=== PATIENT | female | born 1985 | race Caucasian/White ===

== ENCOUNTER 2016-10-11 13:35 | Outpatient (CLI) | payer MEDICAID ==
[2016-10-11] MEDS ORDERED: RINGERS SOLUTION,LACTATED 1,000 ML IV PRN (13:44)
[2016-10-11 14:25] LABS: ABSOLUTE EOSINOPHILS # (AUTO) 0.1 10^3/uL (0.0-0.6); ABSOLUTE LYMPHOCYTES (AUTO) 1.3 10^3/uL (0.5-4.7); ABSOLUTE MONOCYTES (AUTO) 0.8 10^3/uL (0.1-1.4); ABSOLUTE NEUT (AUTO) 9.3 10^3/uL (1.7-8.2); BASOPHILS % (AUTO) 0.2 % (0-2); EOSINOPHILS % (AUTO) 0.6 % (0-6); HEMATOCRIT 31.3 % (36.0-47.0); HEMOGLOBIN 11.1 g/dL (12.0-15.5); LYMPHOCYTES % (AUTO) 11.6 % (13-45); MEAN CORPUSCULAR HEMOGLOBIN 32.8 pg (27.0-33.4); MEAN CORPUSCULAR HGB CONC 35.3 g/dL (32.0-36.0); MEAN CORPUSCULAR VOLUME 93 fl (80-97); MONOCYTES % (AUTO) 7.1 % (3-13); RED BLOOD COUNT 3.37 10^6/uL (3.72-5.28); RED CELL DISTRIBUTION WIDTH 13.2 % (11.5-14.0); SEGMENTED NEUTROPHILS % (AUTO) 80.5 % (42-78); WHITE BLOOD COUNT 11.5 10^3/uL (4.0-10.5)
[2016-10-11 14:34] LABS: APPEARANCE,URINE SLIGHTLY-CLOUDY; BILIRUBIN,URINE NEGATIVE (NEGATIVE); GLUCOSE, URINE NEGATIVE (NEGATIVE); KETONES,URINE NEGATIVE (NEGATIVE); LEUKOCYTE ESTERASE,URINE SMALL (NEGATIVE); NITRITE,URINE NEGATIVE (NEGATIVE); PROTEIN,URINE NEGATIVE (NEGATIVE); URINE SPECIFIC GRAVITY 1.003; UROBILINOGEN,URINE NEGATIVE mg/dL (<2.0)
[2016-10-11] MEDS ORDERED: METOCLOPRAMIDE HCL INJ/PF 10 MG/2 ML SDV IV ONE (14:39)
[2016-10-11] MEDS ORDERED: ONDANSETRON HCL INJ/PF 4 MG/2 ML SDV IV ONE (14:39)
[2016-10-11 14:40] LABS: URINE BARBITURATES SCREEN NEGATIVE; URINE METHADONE SCREEN NEGATIVE; URINE OPIATES LOW NEGATIVE; URINE PHENCYCLIDINE SCREEN NEGATIVE
[2016-10-11] MEDS ORDERED: METOCLOPRAMIDE HCL INJ/PF 10 MG/2 ML SDV ONE (14:44)
[2016-10-11] MEDS ORDERED: ONDANSETRON HCL INJ/PF 4 MG/2 ML SDV ONE (14:44)
[2016-10-11 14:48] LABS: ALANINE AMINOTRANSFERASE 22 U/L (9-52); ALBUMIN 3.6 g/dL (3.5-5.0); ALKALINE PHOSPHATASE 102 U/L (38-126); ANION GAP 12 (5-19); ASPARTATE AMINO TRANSFERASE 15 U/L (14-36); BILIRUBIN,DIRECT 0.3 mg/dL (0.0-0.4); BILIRUBIN,TOTAL 0.6 mg/dL (0.2-1.3); BLOOD UREA NITROGEN 8 mg/dL (7-20); CALCIUM 8.9 mg/dL (8.4-10.2); CARBON DIOXIDE 22 mmol/L (22-30); CHLORIDE 106 mmol/L (98-107); CREATININE RESULT 0.54 mg/dL (0.52-1.25); GLUCOSE 87 mg/dL (75-110); POTASSIUM 4.2 mmol/L (3.6-5.0); SODIUM 140.2 mmol/L (137-145); TOTAL PROTEIN 6.5 g/dL (6.3-8.2)
== END 2016-10-11 15:37 | disposition home or self-care (01) ==
LOC: LC 13:35
PROVIDERS: ATTEND Student in an Organized Health Care Education/Training Program
PROC: 4A1HXCZ Monitoring of Products of Conception, Cardiac Rate, External Approach (ICD-10-PCS; principal; 2016-10-11)
DX: O99.513 Diseases of the respiratory system complicating pregnancy, third trimester (principal); J32.9 Chronic sinusitis, unspecified; Z3A.38 38 weeks gestation of pregnancy
CPT/HCPCS: 59025; 36415; 85025; 80053; 81001; 80307; J2765; J2405

== ENCOUNTER 2016-10-31 20:27 | Inpatient (IN) | payer MEDICAID ==
[2016-10-31 21:09] LABS: ABSOLUTE EOSINOPHILS # (AUTO) 0.1 10^3/uL (0.0-0.6); ABSOLUTE LYMPHOCYTES (AUTO) 2.4 10^3/uL (0.5-4.7); ABSOLUTE MONOCYTES (AUTO) 0.9 10^3/uL (0.1-1.4); ABSOLUTE NEUT (AUTO) 9.6 10^3/uL (1.7-8.2); BASOPHILS % (AUTO) 0.2 % (0-2); HEMATOCRIT 36.3 % (36.0-47.0); HEMOGLOBIN 12.5 g/dL (12.0-15.5); HGB HCT DIFFERENCE 1.2; LYMPHOCYTES % (AUTO) 18.6 % (13-45); MEAN CORPUSCULAR HEMOGLOBIN 32.3 pg (27.0-33.4); MEAN CORPUSCULAR HGB CONC 34.6 g/dL (32.0-36.0); MEAN CORPUSCULAR VOLUME 94 fl (80-97); MONOCYTES % (AUTO) 6.9 % (3-13); RED BLOOD COUNT 3.88 10^6/uL (3.72-5.28); RED CELL DISTRIBUTION WIDTH 13.6 % (11.5-14.0); SEGMENTED NEUTROPHILS % (AUTO) 73.3 % (42-78)
[2016-10-31 21:10] LABS: APPEARANCE,URINE CLEAR; BILIRUBIN,URINE NEGATIVE (NEGATIVE); GLUCOSE, URINE NEGATIVE (NEGATIVE); KETONES,URINE NEGATIVE (NEGATIVE); LEUKOCYTE ESTERASE,URINE NEGATIVE (NEGATIVE); NITRITE,URINE NEGATIVE (NEGATIVE); PROTEIN,URINE NEGATIVE (NEGATIVE); URINE SPECIFIC GRAVITY 1.002; UROBILINOGEN,URINE NEGATIVE mg/dL (<2.0)
[2016-10-31] MEDS ORDERED: DINOPROSTONE 10 MG VAGINAL INSERT.SR ONE (21:19)
[2016-10-31 21:24] LABS: URINE BARBITURATES SCREEN NEGATIVE; URINE METHADONE SCREEN NEGATIVE; URINE OPIATES LOW NEGATIVE; URINE PHENCYCLIDINE SCREEN NEGATIVE
[2016-10-31] MEDS ORDERED: RINGERS SOLUTION,LACTATED 300 ML IV ONE (22:15)
[2016-10-31] MEDS ORDERED: OXYTOCIN/NORMAL SALINE 1,000 ML IV PRN (22:15)
[2016-10-31] MEDS ORDERED: ACETAMINOPHEN 325 MG TABLET PO PRN (22:17)
[2016-10-31] MEDS ORDERED: ZOLPIDEM TARTRATE 5 MG TABLET PO PRN (22:17)
[2016-11-01] MEDS ORDERED: OXYTOCIN/NORMAL SALINE 1,000 ML IV PRN ×2 (03:51→14:17)
[2016-11-01] MEDS ORDERED: ZOLPIDEM TARTRATE 5 MG TABLET PO PRN ×2 (03:51→14:17)
[2016-11-01] MEDS: DINOPROSTONE 10 MG VAGINAL INSERT.SR PV PRN ×2 (05:24→05:25)
[2016-11-01] MEDS ORDERED: OXYTOCIN/NORMAL SALINE 20 UNIT/1,000 ML RTUINJ ONE ×2 (05:30→15:23)
[2016-11-01] MEDS: RINGERS SOLUTION,LACTATED 1,000 ML IV PRN ×2 (05:35→19:39)
[2016-11-01] MEDS ORDERED: ACETAMINOPHEN 325 MG TABLET PO SCH (06:00)
[2016-11-01] MEDS ORDERED: PHENYLEPHRINE HCL INJ/PF 10 MG/1 ML SDV ONE (08:13)
[2016-11-01] MEDS ORDERED: EPHEDRINE SULFATE INJ 50 MG/1 ML AMPULE ONE (08:13)
[2016-11-01] MEDS ORDERED: FENTANYL CITRATE INJ/PF 100 MCG/2 ML AMPUL ONE ×3 (08:13→16:44)
[2016-11-01] MEDS ORDERED: FENTANYL/BUPIVACAINE/NS/PF 200 MCG/100 ML RTUINJ EPI ONE (08:14)
[2016-11-01] MEDS ORDERED: BUPIVACAINE HCL 0.25 % INJ/PF (2.5 MG/1 ML) 30 ML VIAL ONE (08:14)
[2016-11-01] MEDS ORDERED: LIDOCAINE 1% INJ-PF (10 MG/ML) 30 ML SDV ONE (13:44)
[2016-11-01] MEDS ORDERED: MISOPROSTOL 0.2 MG TABLET ONE (13:44)
[2016-11-01] MEDS ORDERED: PROMETHAZINE HCL 25 MG TABLET PO PRN (14:17)
[2016-11-01] MEDS ORDERED: MEASLES,MUMPS&RUBELLA VACC/PF 0.5 ML VIAL SUBCUT PRN (14:17)
[2016-11-01] MEDS ORDERED: GLYCERIN/WITCH HAZEL LEAF 1 EACH MED..PAD TP PRN (14:17)
[2016-11-01] MEDS ORDERED: BENZOCAINE/MENTHOL AEROSOL SPRAY 56 ML TOP PRN (14:17)
[2016-11-01] MEDS ORDERED: ACETAMINOPHEN 650 MG SUPP.RECT PR PRN (14:17)
[2016-11-01] MEDS ORDERED: DIPH/PERTUSS(ACELL)/TETANUS VAC/PF 0.5 ML SYR (>=10YO) IM PRN (14:17)
[2016-11-01] MEDS ORDERED: PSEUDOEPHEDRINE HCL 30 MG TABLET PO PRN (14:17)
[2016-11-01] MEDS ORDERED: DIBUCAINE 1% OINTMENT 28 GM TP PRN (14:17)
[2016-11-01] MEDS ORDERED: ACETAMINOPHEN WITH CODEINE #3 TABLET PO PRN ×2 (14:17)
[2016-11-01] MEDS ORDERED: MAGNESIUM HYDROXIDE SUSP 30 ML UDCUP PO PRN (14:17)
[2016-11-01] MEDS ORDERED: DIPHENHYDRAMINE HCL 25 MG CAPSULE PO PRN (14:17)
[2016-11-01] MEDS ORDERED: NA PHOS,M-B/NA PHOS,DI-BA (ADULT) 133 ML ENEMA PR PRN (14:17)
[2016-11-01] MEDS ORDERED: PROMETHAZINE HCL 25 MG SUPP.RECT PR PRN (14:17)
[2016-11-01] MEDS ORDERED: PROMETHAZINE HCL INJ 25 MG/1 ML VIAL IV PRN (14:17)
[2016-11-01] MEDS ORDERED: ONDANSETRON HCL INJ/PF 4 MG/2 ML SDV ONE ×3 (14:36→19:07)
[2016-11-01] MEDS ORDERED: NORMAL SALINE 250 ML IV PRN ×3 (15:50→17:21)
[2016-11-01] MEDS ORDERED: METHYLERGONOVINE MALEATE INJ/PF 0.2 MG/1 ML AMPULE IV ONE (15:53)
[2016-11-01] MEDS ORDERED: CARBOPROST TROMETHAMINE INJ 250 MCG/1 ML AMPULE ONE (15:54)
[2016-11-01] MEDS ORDERED: CARBOPROST TROMETHAMINE INJ 250 MCG/1 ML AMPULE IM ONE (15:54)
[2016-11-01] MEDS ORDERED: METHYLERGONOVINE MALEATE INJ/PF 0.2 MG/1 ML AMPULE ONE ×2 (15:55→15:57)
[2016-11-01 16:14] LABS: ABSOLUTE EOSINOPHILS # (AUTO) 0.1 10^3/uL (0.0-0.6); ABSOLUTE LYMPHOCYTES (AUTO) 1.7 10^3/uL (0.5-4.7); ABSOLUTE MONOCYTES (AUTO) 0.9 10^3/uL (0.1-1.4); ABSOLUTE NEUT (AUTO) 13.8 10^3/uL (1.7-8.2); BASOPHILS % (AUTO) 0.2 % (0-2); EOSINOPHILS % (AUTO) 0.4 % (0-6); HEMATOCRIT 28.1 % (36.0-47.0); LYMPHOCYTES % (AUTO) 10.3 % (13-45); MEAN CORPUSCULAR HEMOGLOBIN 32.7 pg (27.0-33.4); MEAN CORPUSCULAR HGB CONC 34.4 g/dL (32.0-36.0); MEAN CORPUSCULAR VOLUME 95 fl (80-97); MONOCYTES % (AUTO) 5.7 % (3-13); RED BLOOD COUNT 2.96 10^6/uL (3.72-5.28); RED CELL DISTRIBUTION WIDTH 13.6 % (11.5-14.0); SEGMENTED NEUTROPHILS % (AUTO) 83.4 % (42-78); WHITE BLOOD COUNT 16.5 10^3/uL (4.0-10.5)
[2016-11-01 16:25] LABS: HEMOGLOBIN 9.7 g/dL (12.0-15.5)
[2016-11-01 16:28] LABS: PARTIAL THROMBOPLASTIN TIME 25.2 SEC (23.5-35.8)
[2016-11-01] MEDS ORDERED: LOPERAMIDE HCL 2 MG CAPSULE ONE (16:29)
--- NOTE | 2016-11-01 16:46 | Admission Physical ---
Datetime Report Generated by CPN: 11/01/2016 16:46 CURRENT ADMISSION Hx Assessment: The History has been Reviewed and is Current Chief Complaint: Scheduled Induction of Labor Indication for Induction: Post Dates Admit Plan: Admit to Unit; Initiate Labor Induction Protocol ALLERGIES Medication Allergies: No Medication Allergies: No Known Allergies (04/28/2015) Latex: No Latex Allergies Food Allergies: NONE Environmental Allergies: NONE OBSTETRICAL HISTORY EDC: 10/24/2016 00:00 : 5 Para: 3 Term: 3 : 0 SAB: 1 IAB: 0 Ectopic: 0 Livin Cesareans: 0 VBACs: 0 Multiple Births: 0 Gestational Diabetes: No Rh Sensitization: No Incompetent Cervix: No MADDISON: No Infertility: No ART Treatment: No Uterine Anomaly: No IUGR: No Hx Previous C/S: No Macrosomia: No Hx Loss/Stillborn: No PIH: No Hx : No Placenta Previa/Abruption: No Depression/PP Depression: Yes PTL/PROM: No Post Hemorrhage: No Current Procedures: Ultrasound Obstetrical History Comments: G1: 2004 41 wk G2: 2007 6 wk SAB G3: 2008 40 wk G4: 2014 41 wk G5: current SEE RECORDS Alcohol: No Marijuana : No Cocaine: No Other Illicit Drugs: No Cigarettes: Former Smoker. 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, on meds x6 weeks INFECTIOUS HISTORY Gonorrhea: No Genital Herpes: No Chlamydia: No Tuberculosis: No Syphilis: No Hepatitis: No HIV/AIDS Exposure: No Rash or Viral Illness: No HPV: No PHYSICAL EXAM General: Normal HEENT: Normal Neurologic: Normal Thyroid: Normal Heart: Normal Lungs: Normal Breast: Deferred Back: Normal Abdomen: Normal Genitourinary Exam: Normal Extremities: Normal DTRs: Normal Pelvic Type: Adequate Vital Signs: Reviewed VAGINAL EXAM Dilatation: 2 Effacement: 50 Station: -2 MEMBRANES Pooling: Negative Membranes: Intact FETUS A EGA: 41.1 Monitoring: External US FHR- Baseline: 120 Variability: Moderate 6-25bpm Decelerations: None Presentation: Vertex PLANS FOR LABOR AND DELIVERY Labor and Delivery: None Pain Management: Epidural Feeding Preference: Breast Benefit of Breast Feed Discussed: Yes Circumcision: Yes INFORMED CONSENT Signature: with User ID: [email or web address] : I personally evaluated and examined the patient in conjunction with the MLP and agree with the assessment, treatment plan and disposition.
--- NOTE | 2016-11-01 16:47 | Delivery Summary ---
Del Sum A-C Datetime Report Generated by CPN: 11/01/2016 16:47 DELIVERY PERSONNEL DELIVERY PERSONNEL: [phone] Delivery Doctor:: Caroline Brown CNM Nurse Ship Scaler Certified:: Caroline Brown CNM Labor and Delivery Nurse:: Preeti Zelaya RN Nursery Nurse:: Josefina Hernandez RN Nursery Nurse:: Opal Hensley RN Barometers Calibrator/BALDEV: Abhilash Jones, MARKETING OPERATIONS SPECIALIST MATERNAL INFORMATION Delivery Anesthesia: Epidural Medications After Delivery: Pitocin Bolus-Please Comment; Pitocin Drip 20 Units/1000ml NSS Estimated Blood Loss (ml): 300 Maternal Complications: None Provider Comments: live male in vertex OA to MATEO at 1353 under epidural anesthesia. Increased bleeding with delivery. Nuchal cord x1-reduced prior to delivery of shoulders and body. Dr Maldonado called to room prior to delivery as FHR at 70 beats per minute. Delivery of shoulders and body without difficulty. Cord clamped and cut and baby passed to nursery staff at warmer. Spontaneous respiration and cry with stimulation of drying infant. Apgars 8-8. Placenta, membranes, and cord expelled at 1356, Ingram presentation. Perineum intact. Patient tolerated procedure well. Hemostasis achieved w fundal massage. LABOR SUMMARY EDC: 10/24/2016 00:00 No. Babies in Womb: 1 Attempted: No Labor Anesthesia: Epidural LABOR INFORMATION Reason for Induction: Post Dates Onset of Labor: 11/01/2016 10:31 Oxytocin: Induction Group B Beta Strep: negative Steroids Given: None Reason Steroids Not Administered: Not Applicable MEMBRANES Membranes Rupture Method: Artificial Rupture of Membranes: 11/01/2016 10:31 Length of Rupture (hr): 3.37 Amniotic Fluid Color: Clear Amniotic Fluid Amount: None Amniotic Fluid Odor: Normal STAGES OF LABOR Stage 3 hr: 0 Stage 3 min: 3 Total Time in Labor hr: 3 Total Time in Labor min: 25 VAGINAL DELIVERY Episiotomy: None Laceration Extension: N/A Laceration Type: None Laceration Repair: Not Applicable Sponge Count Correct: N/A Sharps Count Correct: Yes BABY A INFORMATION Infant Delivery Date/Time: 11/01/2016 13:53 Method of Delivery: Vaginal Born in Route : No : N/A Forceps: N/A Vacuum Extraction: N/A Shoulder Dystocia : No PRESENTATION/POSITION BABY A Presentation: Cephalic Cephalic Presentation: Vertex Vertex Position: Left Occipital Anterior Breech Presentation: N/A PLACENTA INFORMATION BABY A Placenta Delivery Time : 11/01/2016 13:56 Placenta Method of Delivery: Spontaneous Placenta Status: Delivered SCORES BABY A Heart Rate 1 min: >100 bpm Resp Effort 1 min: Good Cry Reflex Irritability 1 min: Cough or Sneeze or Pulls Away Muscle Tone 1 min: Active Motion Color 1 min: Blue/Pale Resuscitation Effort 1 min: Tactile Stimulation SCORE 1 MIN: 8 Heart Rate 5 min: >100 bpm Resp Effort 5 min: Good Cry Reflex Irritability 5 min: Cough or Sneeze or Pulls Away Muscle Tone 5 min: Active Motion Color 5 min: Blue/Pale Resuscitation Effort 5 min: N/A SCORE 5 MIN: 8 Resuscitation Effort 10 min: N/A INFANT INFORMATION BABY A Gestational Age at Delivery: 41.1 Gestational Status: Late Term- 41- 41.6 Weeks Outcome : Liveborn Condition : Stable Infant Sex: Male IDENTIFICATION BABY A Infant Verification Date/Time: 11/01/2016 14:08 ID Band Number: [id number] Mother's Name Verified: Yes RN Verifying Infant: D Samire RNC/BL Roulund RN WEIGHT/LENGTH BABY A Infant Birthweight (gm): 3715 Infant Weight (lb): 8 Weight (oz): 3 Infant Length (in): 20.25 Length (cm): 51.44 CORD INFORMATION BABY A No. Cord Vessels: 3 Nuchal Cord : Around Neck x1, Loose Cord Blood Taken: Yes-For Storage (Mom's Blood type +) Suction: None; Mouth ASSESSMENT BABY A Infant Complications: None Physical Findings at Delivery: Within Normal Limits Respirations: Appears Normal Skin to Skin: Yes Sales Support Representative/ALS Called : No Infant Care By: Mario Hernandez RN, Faheem Hensley RN Transferred To: Remains with Mother BABY B INFORMATION : N/A SIGNATURES Assignment: Artur Maldonado DO Signature: with User ID: [email or web address] : with User ID: [email or web address] : I personally evaluated and examined the patient in conjunction with the MLP and agree with the assessment, treatment plan and disposition.
[2016-11-01 17:04] LABS: HEMATOCRIT 23.5 % (36.0-47.0); HGB HCT DIFFERENCE 0.5; MEAN CORPUSCULAR HEMOGLOBIN 32.4 pg (27.0-33.4); MEAN CORPUSCULAR HGB CONC 33.8 g/dL (32.0-36.0); MEAN CORPUSCULAR VOLUME 96 fl (80-97); RED BLOOD COUNT 2.46 10^6/uL (3.72-5.28); RED CELL DISTRIBUTION WIDTH 13.3 % (11.5-14.0); WHITE BLOOD COUNT 13.1 10^3/uL (4.0-10.5)
[2016-11-01] MEDS ORDERED: FENTANYL CITRATE INJ/PF 250 MCG/5 ML AMPULE ONE (17:19)
[2016-11-01] MEDS ORDERED: HYDROMORPHONE HCL INJ/PF 2 MG/ML AMPULE ONE (17:19)
[2016-11-01] MEDS ORDERED: MIDAZOLAM 2 MG/2 ML INJ ONE (17:19)
[2016-11-01] MEDS ORDERED: PROPOFOL INJ 200 MG/20 ML VIAL IV ONE (17:19)
[2016-11-01] MEDS ORDERED: CEFAZOLIN INJ 1 GM VIAL ONE (17:31)
[2016-11-01] MEDS ORDERED: FERROUS SULFATE 325 MG TABLET PO SCH (18:00)
[2016-11-01] MEDS ORDERED: DOCUSATE SODIUM 100 MG CAPSULE PO SCH (18:00)
[2016-11-01] MEDS ORDERED: CALCIUM GLUCONATE 1000 MG/10 ML INJ IV ONE (18:15)
[2016-11-01] MEDS ORDERED: METHYLENE BLUE/PF INJ 100 MG/10 ML SDV ONE (18:19)
[2016-11-01] MEDS ORDERED: MORPHINE SULFATE 10 MG/ML INJ ONE (18:55)
--- NOTE | 2016-11-01 19:04 | Admission Physical ---
Datetime Report Generated by CPN: 11/01/2016 19:03 CURRENT ADMISSION Hx Assessment: The History has been Reviewed and is Current Chief Complaint: Scheduled Induction of Labor Indication for Induction: Post Dates Admit Plan: Admit to Unit; Initiate Labor Induction Protocol ALLERGIES Medication Allergies: No Medication Allergies: No Known Allergies (04/28/2015) Latex: No Latex Allergies Food Allergies: NONE Environmental Allergies: NONE OBSTETRICAL HISTORY EDC: 10/24/2016 00:00 : 5 Para: 3 Term: 3 : 0 SAB: 1 IAB: 0 Ectopic: 0 Livin Cesareans: 0 VBACs: 0 Multiple Births: 0 Gestational Diabetes: No Rh Sensitization: No Incompetent Cervix: No MADDISON: No Infertility: No ART Treatment: No Uterine Anomaly: No IUGR: No Hx Previous C/S: No Macrosomia: No Hx Loss/Stillborn: No PIH: No Hx : No Placenta Previa/Abruption: No Depression/PP Depression: Yes PTL/PROM: No Post Hemorrhage: No Current Procedures: Ultrasound Obstetrical History Comments: G1: 2004 41 wk G2: 2007 6 wk SAB G3: 2008 40 wk G4: 2014 41 wk G5: current SEE RECORDS Alcohol: No Marijuana : No Cocaine: No Other Illicit Drugs: No Cigarettes: Former Smoker. 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 Heart Disease: No Hosp/Surgery: Yes Autoimmune Disorder: No Anesthetic Complications: No Kidney Disease: No Abnormal Pap Smear: No Neuro/Epilepsy: No Psychiatric Disorders: No Other Medical Diseases: No Hepatitis/Liver Disease: No Significant Family History: No Varicosities/Phlebitis: No Trauma/Violence : No Thyroid Dysfunction: No Medical History Comments: 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, on meds x6 weeks INFECTIOUS HISTORY Gonorrhea: No Genital Herpes: No Chlamydia: No Tuberculosis: No Syphilis: No Hepatitis: No HIV/AIDS Exposure: No Rash or Viral Illness: No HPV: No PHYSICAL EXAM General: Normal HEENT: Normal Neurologic: Normal Thyroid: Normal Heart: Normal Lungs: Normal Breast: Deferred Back: Normal Abdomen: Normal Genitourinary Exam: Normal Extremities: Normal DTRs: Normal Pelvic Type: Adequate Vital Signs: Reviewed VAGINAL EXAM Dilatation: 2 Effacement: 50 Station: -2 MEMBRANES Pooling: Negative Membranes: Intact FETUS A EGA: 41.1 Monitoring: External US FHR- Baseline: 120 Variability: Moderate 6-25bpm Decelerations: None Presentation: Vertex PLANS FOR LABOR AND DELIVERY Labor and Delivery: None Pain Management: Epidural Feeding Preference: Breast Benefit of Breast Feed Discussed: Yes Circumcision: Yes INFORMED CONSENT Signature: with User ID: [email or web address] : I personally evaluated and examined the patient in conjunction with the MLP and agree with the assessment, treatment plan and disposition.
[2016-11-01] MEDS ORDERED: LIDOCAINE 2% INJ-PF (20 MG/ML) 10 ML AMPUL ONE (19:07)
[2016-11-01] MEDS ORDERED: GLYCOPYRROLATE INJ 0.4 MG/2 ML VIAL ONE (19:07)
[2016-11-01] MEDS ORDERED: SUCCINYLCHOLINE CHLORIDE INJ 200 MG/10 ML VIAL ONE (19:07)
[2016-11-01] MEDS ORDERED: METOCLOPRAMIDE HCL INJ/PF 10 MG/2 ML SDV ONE (19:07)
[2016-11-01] MEDS ORDERED: ROCURONIUM BROMIDE INJ 50 MG/5 ML VIAL IV ONE (19:07)
[2016-11-01 19:18] LABS: PROTHROMBIN TIME 15.4 SEC (11.4-15.4)
[2016-11-01 19:19] LABS: PARTIAL THROMBOPLASTIN TIME 30.3 SEC (23.5-35.8)
[2016-11-01 19:25] LABS: ANION GAP 8 (5-19); BLOOD UREA NITROGEN 7 mg/dL (7-20); CALCIUM 7.6 mg/dL (8.4-10.2); CARBON DIOXIDE 19 mmol/L (22-30); CHLORIDE 108 mmol/L (98-107); CREATININE RESULT 0.45 mg/dL (0.52-1.25); GLUCOSE 131 mg/dL (75-110); POTASSIUM 5.3 mmol/L (3.6-5.0)
[2016-11-01] MEDS ORDERED: PROPOFOL 100 ML IV ONE (19:37)
[2016-11-01] MEDS ORDERED: ONDANSETRON HCL INJ/PF 4 MG/2 ML SDV IV PRN (19:39)
[2016-11-01] MEDS ORDERED: MORPHINE SULFATE 10 MG/ML INJ IV PRN (19:39)
[2016-11-01 20:03] LABS: MAGNESIUM 1.2 mg/dL (1.6-2.3)
[2016-11-01] MEDS ORDERED: PROPOFOL 100 ML IV PRN (20:03)
[2016-11-01] MEDS: MAGNESIUM SULFATE 1 GM/D5W 100 ML IV SCH ×2 (20:51→22:03)
[2016-11-01 20:59] LABS: PROTHROMBIN TIME 14.3 SEC (11.4-15.4)
[2016-11-01 21:00] LABS: FIBRINOGEN 234 mg/dL (209-497); PARTIAL THROMBOPLASTIN TIME 26.9 SEC (23.5-35.8)
[2016-11-01 21:34] LABS: ABSOLUTE LYMPHOCYTES (AUTO) 0.8 10^3/uL (0.5-4.7); ABSOLUTE MONOCYTES (AUTO) 1.1 10^3/uL (0.1-1.4); ABSOLUTE NEUT (AUTO) 13.3 10^3/uL (1.7-8.2); BASOPHILS % (AUTO) 0.1 % (0-2); HEMOGLOBIN 11.1 g/dL (12.0-15.5); HGB HCT DIFFERENCE 1.3; LYMPHOCYTES % (AUTO) 5.5 % (13-45); MEAN CORPUSCULAR HEMOGLOBIN 31.1 pg (27.0-33.4); MEAN CORPUSCULAR HGB CONC 34.8 g/dL (32.0-36.0); MEAN CORPUSCULAR VOLUME 89 fl (80-97); MONOCYTES % (AUTO) 7.5 % (3-13); RED BLOOD COUNT 3.58 10^6/uL (3.72-5.28); RED CELL DISTRIBUTION WIDTH 14.6 % (11.5-14.0); SEGMENTED NEUTROPHILS % (AUTO) 86.9 % (42-78); WHITE BLOOD COUNT 15.3 10^3/uL (4.0-10.5)
[2016-11-01 21:51] LABS: ALANINE AMINOTRANSFERASE 31 U/L (9-52); ALBUMIN 2.4 g/dL (3.5-5.0); ALKALINE PHOSPHATASE 48 U/L (38-126); ANION GAP 7 (5-19); ASPARTATE AMINO TRANSFERASE 24 U/L (14-36); BILIRUBIN,DIRECT 0.6 mg/dL (0.0-0.4); BILIRUBIN,TOTAL 1.4 mg/dL (0.2-1.3); BLOOD UREA NITROGEN 7 mg/dL (7-20); CALCIUM 7.8 mg/dL (8.4-10.2); CARBON DIOXIDE 22 mmol/L (22-30); CHLORIDE 107 mmol/L (98-107); CREATININE RESULT 0.45 mg/dL (0.52-1.25); GLUCOSE 120 mg/dL (75-110); SODIUM 135.8 mmol/L (137-145); TOTAL PROTEIN 4.7 g/dL (6.3-8.2)
[2016-11-01 21:57] LABS: POTASSIUM 4.3 mmol/L (3.6-5.0)
[2016-11-01 21:59] LABS: D-DIMER > 20.00 ug/mL (0.00-0.50)
[2016-11-01] MEDS ORDERED: FAMOTIDINE 20 MG TABLET PO SCH (22:00)
[2016-11-01] MEDS ORDERED: IBUPROFEN 800 MG TABLET PO SCH (22:00)
[2016-11-01 22:03] LABS: ARTERIAL BLOOD BASE EXCESS -3.7 mmol/L; ARTERIAL BLOOD O2 SATURATION 99.5 % (94-98)
[2016-11-02] MEDS ORDERED: CEFAZOLIN 2 GM/D5W RTU 2 GM/50 ML RTUPB IV SCH
--- NOTE | 2016-11-02 00:18 | OPERATIVE REPORT E ---
Operative Report NAME: JATIN YEBOAH : 1985 AGE: 31Y DATE OF SURGERY: 11/01/16 ROOM: 605 PREOPERATIVE DIAGNOSIS: hemorrhage. POSTOPERATIVE DIAGNOSIS: hemorrhage secondary to uterine rupture. PROCEDURES PERFORMED: 1. Exploratory laparotomy. 2. Supracervical hysterectomy. 3. Cystoscopy. SURGEON: Artur Maldonado D.O. TREE DOCTOR: Su Schmidt M.D. ANESTHESIA: General endotracheal anesthesia. ESTIMATED BLOOD LOSS: 2500 mL. COMPLICATIONS: None. PATHOLOGY: Uterus. FINDINGS: 1. Large uterine rupture of the right posterior aspect of the uterus extending down into the broad ligament, down through the cervix into the vagina. 2. Normal appearing bilateral ovaries. 3. Large right broad ligament hematoma. DESCRIPTION OF PROCEDURE: Patient was taken to the operating room for an emergency hysterectomy secondary to her hemorrhage which was not treated successfully with Methergine, Cytotec, Hemabate, Pitocin, and Bakri balloon. Patient was taken to the operating room where her general endotracheal anesthesia was administered. She was placed in the dorsal supine position upon the operating table. She was then prepped and draped in normal sterile fashion. A scalpel was then used to make a Pfannenstiel skin incision. The skin incision was carried down through the subcutaneous tissue to the layer of the fascia. The fascia was incised in the midline. The fascial incision was extended bilaterally using Bovie cautery. The superior fascial edge was grasped with Reta clamps, elevated, and the rectus muscle was dissected off sharply and bluntly. Attention was then turned to the inferior fascial edge which was grasped with Reta clamps, elevated, and rectus muscle dissected off sharply and bluntly. The rectus muscles were then in the midline. Peritoneum identified, entered bluntly with the surgeon's hands. There was noted to be upon entry a large amount of hemoperitoneum. This was suctioned out. The uterus was then exteriorized and it was noted to have a large uterine rupture from the right posterior aspect of the uterus extending all the way down through the cervix into the vagina, with a large right broad ligament hematoma. Using the LigaSure device, the bilateral round ligaments were transected with good hemostasis. The bilateral utero-ovarian arteries were then transected using the LigaSure device with excellent hemostasis. The bladder flap was then created without difficulty. The uterine arteries were then skeletonized and then transected with good hemostasis with the LigaSure device. Sequential pedicle bites were taken on both sides, down to the level of the cervix, with tying pedicles with 0-Vicryl. At this time, the rupture extension through the cervix into the vagina was repaired using 0-Vicryl in a running locking fashion. Following this, the uterus was amputated at the level of the cervix. The cervix was then suture closed using 0-Vicryl in a [id number] sutures. Following this, the pelvis and abdomen were copiously irrigated. FloSeal was then used over the vagina cuff and the right and left pelvic sidewalls to ensure good hemostasis which was achieved. At this time, Dr. Schmidt broke scrub and performed a cystoscopy on the patient using a 7-degree scope. Patient was previously injected with Methylene Blue. Cystoscopy revealed no foreign bodies within the bladder and good bilateral urethral jet flow. Following this, Dr. Schmidt then changed gloves and came back up to the abdomen where all the pedicle sites and vaginal cuff were inspected and have good hemostasis. Following this, the rectus muscles were then reapproximated using 1-0 Vicryl in a running nonlocking fashion. The fascia was then closed using 1-0 Vicryl in a running nonlocking fashion. The subcutaneous space was made hematostatic using a Bovie cautery. The skin was then closed with absorbable cecilio, covered with an OpSite, and then with a pressor dressing. At this point in time, the procedure was terminated. An x-ray was taken which revealed no retained foreign bodies secondary to an emergency status and no original count was performed. Patient was taken to the ICU for postoperative care in stable condition. DICTATING PHYSICIAN: Artur Maldonado DO [id number] PHY#: [id number] ID: [id number] JOB#: [id number] ACCT: [id number] cc:Artur Maldonado D.O. >
[2016-11-02 02:06] VITALS: BP 120/61
[2016-11-02] MEDS ORDERED: PRENATAL VITAMIN W-O CA NO5/FE FUMARATE/FA CAPSULE PO SCH (10:00)
[2016-11-02] MEDS ORDERED: SENNOSIDES/DOCUSATE 8.6-50 MG 1 EACH TABLET PO SCH (10:00)
[2016-11-07 15:12] LABS: HEMATOCRIT 37.4 % (36.0-47.0); HGB HCT DIFFERENCE -0.5; MEAN CORPUSCULAR HEMOGLOBIN 30.3 pg (27.0-33.4); RED BLOOD COUNT 4.06 10^6/uL (3.72-5.28); RED CELL DISTRIBUTION WIDTH 14.3 % (11.5-14.0); WHITE BLOOD COUNT 15.5 10^3/uL (4.0-10.5)
[2016-11-07 15:14] LABS: HEMOGLOBIN 12.3 g/dL (12.0-15.5); MEAN CORPUSCULAR VOLUME 92 fl (80-97)
--- NOTE | 2016-12-14 17:43 | TRANSFER SUMMARY E ---
Transfer Summary NAME: JATIN YEBOAH : 1985 AGE: 31Y ADMITTED: 10/31/2016 TRANSFERRED: 12/14/2016 HOSPITAL COURSE: The patient is admitted on 11/02/2016 for scheduled induction secondary to post dates. See labor note for full details. The patient undergoes a normal labor curve and normal spontaneous vaginal delivery. She has hemorrhage that initially was treated with tocolytics, which does not resolve the hemorrhage and also followed by with a Bakri balloon, which did not resolve the hemorrhage. The patient was taken to the operating room for an exploratory laparotomy and is found to have a very large posterior uterine rupture. The patient undergoes an emergent supracervical hysterectomy; see operative note for full details. She was transferred to the intensive care unit approximately an hour to 90 minutes following the surgery. The patient begins to exhibit signs of DIC. The decision is made secondary to lack of blood products here at [facility] to transfer the patient to [facility]. The transfer is accomplished via helicopter. DICTATING PHYSICIAN: Artur Maldonado DO [id number] PHY#: [id number] ID: [id number] JOB#: [id number] ACCT: [id number] cc:Artur Maldonado D.O. >
== END 2016-11-01 22:25 | disposition short-term general hospital (02) | DRG 768 ==
LOC: LR 20:27 → ICU 11-01 19:01
PROVIDERS: ADMIT Obstetrics & Gynecology; ATTEND Obstetrics & Gynecology
PROC: 0UT90ZZ Resection of Uterus, Open Approach (ICD-10-PCS; 2016-11-01)
PROC: 0W3J0ZZ Control Bleeding in Pelvic Cavity, Open Approach (ICD-10-PCS; 2016-11-01)
PROC: 0TJB8ZZ Inspection of Bladder, Via Natural or Artificial Opening Endoscopic (ICD-10-PCS; 2016-11-01)
PROC: 30233K1 Transfusion of Nonautologous Frozen Plasma into Peripheral Vein, Percutaneous Approach (ICD-10-PCS; 2016-11-01)
PROC: 30233N1 Transfusion of Nonautologous Red Blood Cells into Peripheral Vein, Percutaneous Approach (ICD-10-PCS; 2016-11-01)
PROC: 30233R1 Transfusion of Nonautologous Platelets into Peripheral Vein, Percutaneous Approach (ICD-10-PCS; 2016-11-01)
PROC: 10E0XZZ Delivery of Products of Conception, External Approach (ICD-10-PCS; principal; 2016-11-01 17:16)
DX: O48.0 Post-term pregnancy (principal); O71.1 Rupture of uterus during labor; O72.1 Other immediate postpartum hemorrhage; O69.81X0 Labor and delivery complicated by cord around neck, without compression, not applicable or unspecified; Z3A.41 41 weeks gestation of pregnancy; Z37.0 Single live birth
CPT/HCPCS: 36415; 36430; 71010; 74000; 80048; 80053; 80307; 81005; 82803; 83735; 840; 85025; 85027; 85379; 85384; 85610; 85730; 86592; 86850; 86900; 86901; 86920; 88307; 94002; 94760; J0330; J0610; J0690; J1170; J2210; J2250; J2270; J2370; J2405; J2590; J2704; J2765; J3010; J3475; J3490; J7120; P9016; P9017; P9035; Q9968